=== PATIENT | male | born 1980 | race Caucasian/White ===

== ENCOUNTER → 2023-03-01 | Outpatient (CLI) | payer BC | END | disposition home or self-care (01) | LOC: RAH 12:37 | PROVIDERS: ATTEND Nurse Practitioner | DX: M24.812 Other specific joint derangements of left shoulder, not elsewhere classified (principal); M75.102 Unspecified rotator cuff tear or rupture of left shoulder, not specified as traumatic; D17.9 Benign lipomatous neoplasm, unspecified; M25.812 Other specified joint disorders, left shoulder | CPT/HCPCS: 73221 ==

== ENCOUNTER 2023-04-06 08:17 | Day surgery (SDC) | payer BC ==
[2023-04-04 13:45] LABS: BASOPHILS % (AUTO) 0.7 % (0.0-5.0); EOSINOPHILS % (AUTO) 1.6 % (0.0-8.0); HEMATOCRIT 48.7 % (42-54); LYMPHOCYTES % (AUTO) 26.6 % (21.0-51.0); MEAN CORPUSCULAR HEMOGLOBIN 29.7 pg (27.0-33.0); MEAN CORPUSCULAR HGB CONC 33.1 g/dL (32.0-36.0); MEAN CORPUSCULAR VOLUME 89.7 fL (79-99); MONOCYTES % (AUTO) 9.1 % (3.0-13.0); NEUTROPHILS % (AUTO) 61.9 % (40.0-77.0); PLATELET COUNT (AUTO) 277 K/uL (130-400); RED BLOOD CELL COUNT(AUTO) 5.43 MIL/uL (4.50-6.20); RED CELL DISTRIBUTION WIDTH 12.8 % (11.0-15.5); WHITE BLOOD COUNT (AUTO) 6.8 K/uL (4.8-10.8)
[2023-04-04 13:56] LABS: ALBUMIN 4.3 g/dL (3.5-5.0); CARBON DIOXIDE 28 mmol/L (21-32); CHLORIDE 98 mmol/L (101-111); GLOMERULAR FILTR. RATE CALC 96 mL/min (>90); GLUCOSE,RANDOM 90 mg/dL (70-105); POTASSIUM 3.5 mmol/L (3.5-5.1); SODIUM SERUM 134 mmol/L (136-145); UREA NITROGEN, BLOOD 11 mg/dL (7-18)
[2023-04-04 13:57] LABS: CRP QUANTITATIVE < 2.00 mg/L (0.00-9.0)
[2023-04-04 14:11] VITALS: BP 144/83; PULSE 76; RESP 16
[~2023-04-06] VITALS: Ht 182.9 cm; Wt 92.7 kg
[2023-04-06] VITALS (19 sets, daily range): BP systolic 107–126; BP diastolic 50–75; PULSE 65–89; RESP 12–18
[~2023-04-06 08:17] MED LIST: DEXT30TA10 PO; GABA300C PO; LORA0.5T83 PO; ZOLP10TA2 PO
[2023-04-06] MEDS ORDERED: CEFAZOLIN SODIUM 1 GM VIAL ONE (08:46)
[2023-04-06] MEDS ORDERED: LACTATED RINGERS 1000ML 1,000 ML IV ONE (08:46)
[2023-04-06] MEDS ORDERED: EPINEPHRINE 1 MG/ML 30ML VIAL IJ ONE (09:56)
[2023-04-06] MEDS ORDERED: ROCURONIUM 10MG/1ML SYR 10 MG/ML ML ONE ×2 (10:03→11:16)
[2023-04-06] MEDS ORDERED: FENTANYL CITRATE PF 50 MCG/1 ML 2ML VIAL ONE ×3 (10:03→13:51)
[2023-04-06] MEDS ORDERED: MIDAZOLAM HCL 1 MG/ML 2ML VIAL ONE (10:03)
[2023-04-06] MEDS ORDERED: LIDOCAINE PF 100MG/5ML (2%) SYRINGE 5ML ONE (10:03)
[2023-04-06] MEDS ORDERED: PROPOFOL 10 MG/ML 20ML VIAL IV ONE (10:03)
[2023-04-06] MEDS ORDERED: EPHEDRINE SULFATE 50 MG/ML AMPULE ONE (11:09)
[2023-04-06] MEDS ORDERED: ONDANSETRON 4MG INJ ONE (11:14)
[2023-04-06] MEDS ORDERED: DEXAMETHASONE SOD PHOSPHATE 10MG/ML 1ML VIAL ONE (11:14)
[2023-04-06] MEDS ORDERED: NEOSTIGMINE 5MG/5ML SYR IV ONE (12:50)
[2023-04-06] MEDS ORDERED: GLYCOPYRROLATE 1 MG/5 ML SYRINGE ONE (12:50)
[2023-04-06] MEDS ORDERED: ROPIVACAINE 0.5% 5MG/ML 30ML IJ ONE (12:52)
[2023-04-06] MEDS ORDERED: HYDR-4060 PO (13:04)
[2023-04-06] MEDS ORDERED: MEPERIDINE-PF 25 MG/ML SYG ONE (13:39)
[2023-04-06] MEDS ORDERED: HYDROCODONE/ACETAMINOPHEN 5/325 MG TAB ONE (14:22)
[2023-04-06] MEDS ORDERED: HYDROCODONE/ACETAMINOPHEN 5/325 MG TAB PO ONE (14:30)
== END 2023-04-06 15:45 | disposition home or self-care (01) ==
LOC: DAH 08:17
PROVIDERS: ATTEND Student in an Organized Health Care Education/Training Program
DX: M19.012 Primary osteoarthritis, left shoulder (principal); Z20.822 Contact with and (suspected) exposure to COVID-19; M75.112 Incomplete rotator cuff tear or rupture of left shoulder, not specified as traumatic; M75.42 Impingement syndrome of left shoulder; M25.812 Other specified joint disorders, left shoulder; M24.112 Other articular cartilage disorders, left shoulder; M77.8 Other enthesopathies, not elsewhere classified; M25.712 Osteophyte, left shoulder; F17.200 Nicotine dependence, unspecified, uncomplicated; Z90.89 Acquired absence of other organs; Z98.890 Other specified postprocedural states; Z82.49 Family history of ischemic heart disease and other diseases of the circulatory system; Z80.9 Family history of malignant neoplasm, unspecified; Z87.39 Personal history of other diseases of the musculoskeletal system and connective tissue; Z79.899 Other long term (current) drug therapy; Z79.01 Long term (current) use of anticoagulants
CPT/HCPCS: 82040; 80048; 85025; 84134; 86140; 87426; 36415; 29828; 29824; 29826; 64415; A4663; J7030; A4565; J7120; J3010 ×3; J0690; J3490 ×2; J1100; J2710; J0171; J2001; J2250; J2704; J2405; J2175; J2795; A6223; A4649; A5120; A4215; A4223; A4222; A4221; A4600